=== PATIENT | male | born 1970 | race Caucasian/White ===

== ENCOUNTER → 2018-04-09 | Outpatient (CLI) | payer OTHER ==
--- NOTE | 2018-04-22 16:01 | Polysomnography ---
DATE OF STUDY: April 09, 2018 IMPRESSIONS 1. Mild obstructive sleep apnea (JANIE) with associated arterial oxygen desaturations with a respiratory distress index (RDI) of 5.2. 2. Significant snoring was noted. 3. Periodic limb movements were noted both in rapid eye movement (REM) sleep and non-REM sleep. RECOMMENDATIONS 1. Initiate titration for continuous positive airway pressure therapy (CPAP). 2. Consider conservative approach of an oral appliance or positional device. 3. ENT evaluation to consider surgical options to correct sleep-disordered breathing. 4. Avoid consumption of alcohol or sedatives before bedtime. 5. Avoid caffeine and exercise within 3 to 4 hours prior to bedtime. 6. Weight reduction to ideal both weight. 7. Advise patient that excessive daytime sleepiness could pose a danger to patient and others while driving or operating heavy machinery and to use caution until symptoms are treated and improved. 8. Patient to follow up with physician to discuss results of study. Job#: [id number] MTDD
== END ==
LOC: SLEEP 15:35
PROVIDERS: ATTEND Otolaryngology
DX: G47.33 Obstructive sleep apnea (adult) (pediatric) (principal)
CPT/HCPCS: 95810

== ENCOUNTER → 2018-06-05 | Outpatient (CLI) | payer OTHER ==
--- NOTE | 2018-06-19 15:29 | Polysomnography ---
DATE OF STUDY: June 05, 2018 CPAP TITRATION POLYSOMNOGRAM IMPRESSIONS 1. Significant response to continuous positive airway pressure at 12 cm of H2O pressure, which resulted in reduction of respiratory distress index. 2. Snoring was improved with continuous positive airway pressure therapy. 3. Oxygen saturations improved with continuous positive airway pressure therapy. 4. Limb movements were observed. RECOMMENDATIONS 1. CPAP pressure at 12 cm of water pressure with heated humidifier. 2. Consider conservative approach of an oral appliance or positional device. 3. Avoid consumption of alcohol or sedatives before bedtime. 4. Weight reduction to ideal body weight is recommended. 5. Advise patient that excessive daytime sleepiness could pose a danger to patient and others while driving or operating heavy machinery, and to use caution until symptoms are treated and improved. 6. Patient to follow up with physician to discuss results of the study. Job#: [id number] TA MTDD
== END ==
LOC: SLEEP 19:50
PROVIDERS: ATTEND Otolaryngology
DX: G47.33 Obstructive sleep apnea (adult) (pediatric) (principal)
CPT/HCPCS: 95811